=== PATIENT | male | born 1965 ===

== ENCOUNTER 2021-09-07 23:46 | Emergency (ER) | payer SELFPAY ==
[~2021-09-07] VITALS: Ht 177.8 cm; Wt 95.5 kg
[2021-09-08 03:52] VITALS: BP 000/00; PULSE 00; TEMP 0000
== END 2021-09-08 03:45 | disposition expired ==
LOC: COL.ER 23:46
DX: I46.9 Cardiac arrest, cause unspecified (principal)
CPT/HCPCS: J0171; J2001